=== PATIENT | female | born 1980 | race African-American/Black ===

== ENCOUNTER 2016-10-26 19:20 | Emergency (ER) | payer OTHER ==
[~2016-10-26] VITALS: Ht 167.6 cm; Wt 49.9 kg
[2016-10-26] MEDS ORDERED: iron PO (19:30)
[2016-10-26] MEDS ORDERED: NS 500 ML IV ONE (21:45)
[2016-10-26] MEDS ORDERED: ONDANSETRON 4MG/2ML VIAL (J2405) IV ONE (21:45)
[2016-10-26] MEDS ORDERED: KETOROLAC 30 MG/ML VIAL (J1885) IV ONE (21:45)
[2016-10-26 22:15] LABS: BASO % 0.3 % (0.0-1.0); EOS # 0.1 K/mm3 (0.0-0.50); EOS % 1.9 % (0.0-3.0); LARGE UNSTAINED CELL # 0.1 K/mm3 (0.0-0.4); LARGE UNSTAINED CELL % 2.7 % (0.0-4.0); LYMPH # 2.4 K/mm3 (1.5-4.5); LYMPH % 47.2 % (24.0-44.0); MEAN CORPUSCULAR HEMOGLOBIN 28.5 pg (27.0-33.0); MEAN CORPUSCULAR HGB CONC 32.5 g/dl (32.0-36.5); MEAN CORPUSCULAR VOLUME 87.9 fl (80.0-96.0); MONO # 0.3 K/mm3 (0.0-0.8); MONO % 6.4 % (0.0-5.0); NEUTROPHILS # 2.1 K/mm3 (1.8-7.7); NEUTROPHILS % 41.4 % (36.0-66.0); PLATELET COUNT, AUTOMATED 167 k/mm3 (150-450); RED CELL DISTRIBUTION WIDTH 12.1 % (11.5-14.5); WHITE BLOOD COUNT 5.2 K/mm3 (4.0-10.0)
[2016-10-26 22:25] LABS: ANION GAP 7 MEQ/L (8-16); BLOOD UREA NITROGEN 13 MG/DL (7-18); CALCIUM LEVEL 8.6 MG/DL (8.5-10.1); CARBON DIOXIDE LEVEL 25 MEQ/L (21-32); CHLORIDE LEVEL 108 MEQ/L (98-107); CREATININE FOR GFR 1.19 MG/DL (0.55-1.02); GLOMERULAR FILTRATION RATE > 60.0 (>60); GLUCOSE, FASTING 91 MG/DL (70-105); POTASSIUM SERUM 3.7 MEQ/L (3.5-5.1); SODIUM LEVEL 140 MEQ/L (136-145)
--- NOTE | 2016-10-26 23:30 | REPUSA ---
Clinical history: Pain. Findings: Real-time transabdominal ultrasound images of the pelvis were obtained. An anteverted uteru s is noted, measuring 8.9 x 5.1 x 5.5 cm. There is a fibroid in the uterine left fundus measuring 2. 6 x 2.6 x 2.8 cm.. The uterus demonstrates normal echotexture and echogenicity. The endometrial strip e measures 11 mm and is within normal limits. The right ovary measures 4.1 x 3.1 x 2.8 cm. The left ovary measures 3.1 x 1.6 x 2.4 cm. No adnexal masses are seen. Color Doppler flow is seen within both ovaries. There is no evidence of free fluid. Impression: No acute findings. Left uterine fundal fibroid.
[2016-10-26 23:58] VITALS: BP 104/57
[2016-10-27] MEDS ORDERED: NITROFURANTOIN (MACROBID) 100 MG CAP PO ONE
[2016-10-27] MEDS ORDERED: ONDANSETRON 4 MG ORAL DISINTEGRATING TAB (S0181) PO ONE
[2016-10-27] MEDS ORDERED: ZOFR4TAB3 PO (00:01)
[2016-10-27] MEDS ORDERED: MACR100C3 PO (00:01)
== END 2016-10-27 00:05 | disposition home or self-care (01) ==
LOC: M ED 20:29
DX: D25.9 Leiomyoma of uterus, unspecified (principal); N39.0 Urinary tract infection, site not specified
CPT/HCPCS: 76856; 80048; 81025; 83690; 85025; 86140; 93976; 96361; 96374; 96375; 99284; J1885; J2405

== ENCOUNTER → 2018-10-30 | Outpatient (CLI) | payer OTHER ==
[~2018-10-30] MED LIST: MACR100C43 PO; ZOFR4TAB14 PO; iron PO
--- NOTE | 2018-10-30 09:40 | REP ---
Renal bladder ultrasound: The right kidney measures 9.2 x 4.7 x 3.2 cm. The left kidney measures 9.4 x 4.45 point 4 cm. The kidneys are in the low normal size range. Renal cortical echogenicity is normal bilaterally. There are no renal calculi. There is no hydronephrosis. There are no solid or cystic renal masses. Bladder: The bladder is incompletely distended. The pre void bladder volume is 39 ml. The The bladder wall is diffusely thickened and irregular. This is nonspecific and could be artifact from incomplete distension, bladder inflammation or neoplasm. The post void bladder residual is 3 ml. Postvoid residual is 8%. Impression: The kidneys are in the low normal size range bilaterally but are otherwise unremarkable. There is diffuse irregular bladder wall thickening, nonspecific as described above. There is 3 ml of residual fluid in the bladder on the postvoid images. Electronically Signed by Sagar Franks MD 10/30/2018 09:16 A
== END ==
LOC: M RAD 10-09 11:52
PROVIDERS: ATTEND Nurse Practitioner Family
DX: N39.0 Urinary tract infection, site not specified (principal); R13.10 Dysphagia, unspecified; N32.89 Other specified disorders of bladder